=== PATIENT | female | born 1985 | race American Indian/Alaskan Native ===

== ENCOUNTER 2018-06-08 19:28 | Emergency (ER) | payer SELFPAY ==
[2018-06-08 19:58] VITALS: BP 134/88
[2018-06-08] MEDS ORDERED: MOTRIN PO ONE (20:08)
[2018-06-08] MEDS ORDERED: MOTRIN ONE (20:08)
[2018-06-08] MEDS ORDERED: TORADOL IM ONE (20:58)
[2018-06-08] MEDS ORDERED: DELTASONE PO ONE (20:58)
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
== END 2018-06-08 22:25 | disposition home or self-care (01) ==
LOC: ED 19:28
DX: S16.1XXA Strain of muscle, fascia and tendon at neck level, initial encounter (principal); M54.9 Dorsalgia, unspecified; Z98.51 Tubal ligation status; X58.XXXA Exposure to other specified factors, initial encounter; Y93.89 Activity, other specified; Y92.89 Other specified places as the place of occurrence of the external cause; Y99.8 Other external cause status
CPT/HCPCS: 96372; 99282; J1885; J7512